=== PATIENT | female | born 1945 | race African-American/Black ===

== ENCOUNTER 2017-09-11 13:37 | Emergency (ER) | payer MEDICARE, OTHER ==
[~2017-09-11] VITALS: Ht 170.2 cm; Wt 75.0 kg
[~2017-09-11 13:37] MED LIST: ALBUTEROL; AMLODIPINE; ATROVENT; CLONIDINE PO; FLUT1DIS3 INH; METOPROLOL PO; NORVASC PO
[2017-09-11] MEDS ORDERED: ACETAMINOPHEN 325MG TABLET PO ONE (18:30)
[2017-09-11 20:34] VITALS: BP 127/83
[2017-09-22] MEDS ORDERED: ATROV IH (16:30)
== END 2017-09-11 20:41 | disposition home or self-care (01) ==
LOC: ER 13:37
DX: S81.832A Puncture wound without foreign body, left lower leg, initial encounter (principal); I10 Essential (primary) hypertension; J45.909 Unspecified asthma, uncomplicated; Z90.710 Acquired absence of both cervix and uterus; W22.8XXA Striking against or struck by other objects, initial encounter; Y93.89 Activity, other specified; Y99.8 Other external cause status; Y92.89 Other specified places as the place of occurrence of the external cause
CPT/HCPCS: 12001; 73590; 99284

== ENCOUNTER 2017-09-14 11:03 | Emergency (ER) | payer MEDICARE ==
[~2017-09-14] VITALS: Ht 170.2 cm; Wt 75.0 kg
[2017-09-14 11:14] VITALS: BP 132/78
[2017-09-22] MEDS ORDERED: ATROV IH (16:30)
== END 2017-09-14 12:41 | disposition home or self-care (01) ==
LOC: ER 11:03
DX: Z48.00 Encounter for change or removal of nonsurgical wound dressing (principal); I10 Essential (primary) hypertension; E11.9 Type 2 diabetes mellitus without complications; J45.909 Unspecified asthma, uncomplicated; Z91.013 Allergy to seafood; Z90.710 Acquired absence of both cervix and uterus
CPT/HCPCS: 99281

== ENCOUNTER 2017-09-18 09:29 | Emergency (ER) | payer MEDICARE ==
[~2017-09-18] VITALS: Ht 170.2 cm; Wt 74.0 kg
[2017-09-18] MEDS ORDERED: CEFTRIAXONE 1 G PREMIX 50 ML IV ONE (16:00)
[2017-09-18] MEDS ORDERED: VANCOMYCIN 1 G PREMIX 200 ML IV SCH (16:00)
[2017-09-18 17:30] VITALS: BP 157/69
[2017-09-22] MEDS ORDERED: ATROV IH (16:30)
== END 2017-09-18 19:00 | disposition home or self-care (01) ==
LOC: ER 12:42
DX: L03.116 Cellulitis of left lower limb (principal); Z91.013 Allergy to seafood
CPT/HCPCS: 87070; 87205; 96365; 96368; 99284; J0696; J3370

== ENCOUNTER 2017-10-05 18:46 | Inpatient (IN) | payer MEDICARE ==
[~2017-10-05] VITALS: Ht 170.2 cm; Wt 69.4 kg
[2017-10-05 00:15] VITALS: BP 123/88
[~2017-10-05 18:46] MED LIST changes: -AMLODIPINE; +ATROV IH; -ATROVENT
[2017-10-05] MEDS ORDERED: METHYLPREDNISOLONE SOD SUCC 125 MG/2 ML VIAL IV STA (20:03)
[2017-10-05] MEDS ORDERED: IPRATROPIUM/ALBUTEROL 0.5-3(2.5)MG/3ML NEB HHN ONE (20:15)
[2017-10-05 20:44] LABS: BASOPHILS % 1.2 % (0.0-2.0); EOSINOPHILS % 7.7 % (0.0-5.0); HEMATOCRIT. 39.9 % (36.0-48.0); HEMOGLOBIN. 13.4 g/dL (12.0-16.0); LYMPHOCYTES % 21.1 % (20.0-50.0); MEAN CORPUSCULAR HEMOGLOBIN 26.9 pg (28.0-32.0); MEAN CORPUSCULAR VOLUME 80.4 fL (81.0-99.0); MEAN PLATELET VOLUME 8.3 fl (7.4-10.4); MONOCYTES % 9.1 % (2.0-8.0); NEUTROPHILS % 60.9 % (40.0-76.0); PLATELET 217 x1000/uL (130-400); RED BLOOD CELL COUNT 4.97 mill/uL (4.2-5.4); RED CELL DISTRIBUTION WIDTH 15.5 % (11.6-14.6)
[2017-10-05 20:50] LABS: INR 1.1; PARTIAL THROMBOPLASTIN TIME 26.1 sec (23.4-31.0); PROTHROMBIN TIME 10.9 sec (9.4-11.6)
[2017-10-05 21:00] LABS: CARBON DIOXIDE 23 mEq/L (21-32); CHLORIDE 110 mEq/L (98-107)
[2017-10-05 21:01] LABS: TROPONIN I < 0.02 ng/mL (0.00-0.04)
[2017-10-05] MEDS ORDERED: VANCOMYCIN 1 G PREMIX 200 ML IV SCH (21:45)
[2017-10-05 22:14] LABS: BG BASE EXCESS -5.2 mmol/L (-2.0-2.0); BG DEOXYHEMOGLOBIN 3.7 % (0.0-5.0); BG FRACTION INSPIRED OXYGEN 21; BG HCO3 ACT 19.1 mmol/L (22.0-26.0); BG METHEMOGLOBIN 0.3 % (0.0-1.5); BG OXYGEN SATURATION 96.3 % (92.0-98.5); BG PCO2 33.3 mmHg (35.0-45.0); BG PH 7.376 (7.350-7.450); BG PO2 81.6 mmHg (75.0-100.0); BG SAMPLE SITE RIGHT RADIAL; BG TOTAL HEMOGLOBIN 13.4 g/dL (12.0-18.0); BG VENT MODE ROOM AIR
[2017-10-06 00:15] VITALS: BP 123/88
[2017-10-06 00:20] VITALS: BP 123/88
[2017-10-06] MEDS ORDERED: DIPHENHYDRAMINE 25MG CAPSULE PO PRN (01:30)
[2017-10-06] MEDS ORDERED: CLONIDINE 0.1MG TABLET PO PRN (02:00)
[2017-10-06 04:00] VITALS: BP 110/68
[2017-10-06] MEDS ORDERED: IPRATROPIUM/ALBUTEROL 0.5-3(2.5)MG/3ML NEB HHN SCH (04:00)
[2017-10-06] MEDS: METHYLPREDNISOLONE SOD SUCC 40 MG/ML VIAL IV SCH ×3 (06:08→14:15)
[2017-10-06 07:46] LABS: BASOPHILS % 0.4 % (0.0-2.0); HEMATOCRIT. 39.6 % (36.0-48.0); HEMOGLOBIN. 13.3 g/dL (12.0-16.0); LYMPHOCYTES % 19.1 % (20.0-50.0); MEAN CORPUSCULAR VOLUME 80.6 fL (81.0-99.0); MEAN PLATELET VOLUME 8.4 fl (7.4-10.4); MONOCYTES % 1.2 % (2.0-8.0); NEUTROPHILS % 79.3 % (40.0-76.0); PLATELET 203 x1000/uL (130-400); RED BLOOD CELL COUNT 4.92 mill/uL (4.2-5.4); RED CELL DISTRIBUTION WIDTH 15.3 % (11.6-14.6)
[2017-10-06 08:00] VITALS: BP 140/70
[2017-10-06 08:31] LABS: CHLORIDE 110 mEq/L (98-107)
[2017-10-06 08:50] LABS: CARBON DIOXIDE 18 mEq/L (21-32)
[2017-10-06] MEDS ORDERED: AMLODIPINE 10MG TABLET PO SCH (09:00)
[2017-10-06] MEDS ORDERED: ENOXAPARIN 40MG/0.4ML SYR SUBCUT SCH (09:00)
[2017-10-06] MEDS ORDERED: METOPROLOL TARTRATE 25MG TABLET PO SCH (09:00)
[2017-10-06] MEDS ORDERED: VANCOMYCIN 500 MG PREMIX 100 ML IV SCH (11:00)
[2017-10-06] MEDS ORDERED: LEVOFLOXACIN 500MG TABLET PO SCH (11:00)
[2017-10-06 12:00] VITALS: BP 116/74
[2017-10-06 14:10] LABS: T4 FREE 0.91 ng/dL (0.76-1.46)
[2017-10-06] MEDS ORDERED: LIDOCAINE HCL 1% 20ML VIAL (Pyxis) INJ ONE (14:20)
[2017-10-06] MEDS ORDERED: SODIUM BICARBONATE 4% (2.4MEQ) 5ML VIAL IV ONE (14:20)
[2017-10-06 15:10] VITALS: BP 116/74
[2017-10-07] MEDS ORDERED: LEVOFLOXACIN 250MG TABLET PO SCH (11:00)
== END 2017-10-06 16:18 | disposition home or self-care (01) | DRG 191 ==
LOC: EDBEDREQTM 22:18 → EDBEDREQ 22:18 → ER 22:31 → 5WST 22:32 → ENRESERV 23:00
PROVIDERS: ADMIT Internal Medicine; ATTEND Internal Medicine
DX: J44.1 Chronic obstructive pulmonary disease with (acute) exacerbation (principal); L03.116 Cellulitis of left lower limb; M19.90 Unspecified osteoarthritis, unspecified site; I10 Essential (primary) hypertension; Z79.899 Other long term (current) drug therapy; Z90.710 Acquired absence of both cervix and uterus; Z91.013 Allergy to seafood
CPT/HCPCS: 36415; 36600; 71010; 80048; 80053; 82375; 82805; 82962; 83605; 83880; 84439; 84443; 84481; 84484; 85025; 85610; 85730; 87040; 93005; 94640; 96365; 96375; 99285; J1650; J2920; J2930; J3370; J3490; J7620; Q0163

== ENCOUNTER 2018-06-29 09:28 | Observation (INO) | payer MEDICARE ==
[~2018-06-29] VITALS: Ht 170.2 cm; Wt 63.5 kg
[~2018-06-29 09:28] MED LIST changes: -ALBUTEROL
[2018-06-29] MEDS ORDERED: METHYLPREDNISOLONE SOD SUCC 125 MG/2 ML VIAL IV STA (09:53)
[2018-06-29] MEDS ORDERED: IPRATROPIUM BROMIDE (0.02%) 0.5MG/2.5ML NEB HHN STA (09:53)
[2018-06-29] MEDS ORDERED: ALBUTEROL (0.083%) 2.5MG/3ML NEB HHN STA (09:53)
[2018-06-29 10:12] LABS: BASOPHILS % 0.5 % (0.0-2.0); EOSINOPHILS % 11.5 % (0.0-5.0); HEMATOCRIT. 43.7 % (36.0-48.0); HEMOGLOBIN. 14.7 g/dL (12.0-16.0); LYMPHOCYTES % 22.4 % (20.0-50.0); MEAN CORPUSCULAR VOLUME 80.4 fL (81.0-99.0); NEUTROPHILS % 57.6 % (40.0-76.0); PLATELET 248 x1000/uL (130-400); RED BLOOD CELL COUNT 5.44 mill/uL (4.2-5.4); RED CELL DISTRIBUTION WIDTH 15.9 % (11.6-14.6)
[2018-06-29 10:14] LABS: CHLORIDE 109 mEq/L (98-107)
[2018-06-29 10:15] LABS: PROTHROMBIN TIME 10.8 sec (9.4-11.6)
[2018-06-29] MEDS ORDERED: DIPHENHYDRAMINE 50MG/ML VIAL IV ONE (10:45)
[2018-06-29] MEDS ORDERED: SODIUM CHLORIDE 0.9% 1,000 ML IV ONE (11:00)
[2018-06-29 16:20] VITALS: BP 149/72
[2018-06-29 16:30] VITALS: BP 149/72
[2018-06-29] MEDS ORDERED: ACETAMINOPHEN 325MG TABLET PO PRN (18:15)
[2018-06-29] MEDS ORDERED: IPRATROPIUM/ALBUTEROL 0.5-3(2.5)MG/3ML NEB INH PRN (18:15)
[2018-06-29] MEDS ORDERED: CLONIDINE 0.1MG TABLET PO PRN (18:15)
[2018-06-29] MEDS ORDERED: ONDANSETRON 4MG ODT PO PRN (18:15)
[2018-06-29] MEDS ORDERED: MAGNESIUM/ALUMINUM HYDROXIDE/SIMETHICONE 30ML UDC PO PRN (18:15)
[2018-06-29] MEDS ORDERED: ACETAMINOPHEN 650MG SUPP PR PRN (18:15)
[2018-06-29] MEDS ORDERED: NA PHOS,M-B/NA PHOS,DI-BA ENEMA 118ML PR PRN (18:15)
[2018-06-29] MEDS ORDERED: HYDROCODONE/ACETAMINOPHEN 5/325MG TABLET PO PRN (18:15)
[2018-06-29] MEDS ORDERED: AMLODIPINE 5MG TABLET PO NR (18:45)
[2018-06-29] MEDS: METHYLPREDNISOLONE SOD SUCC 40 MG/ML VIAL IV SCH (19:04)
[2018-06-29 20:00] VITALS: BP 131/60
[2018-06-29] MEDS: LEVOFLOXACIN 500MG PREMIX 100 ML IV SCH (20:53)
[2018-06-29] MEDS: SODIUM CHLORIDE 0.45% 1,000 ML IV SCH (20:54)
[2018-06-29] MEDS: IPRATROPIUM/ALBUTEROL 0.5-3(2.5)MG/3ML NEB HHN SCH (21:42)
[2018-06-29] MEDS: FAMOTIDINE 20MG/2ML VIAL IV SCH (21:44)
[2018-06-29] MEDS: ENOXAPARIN 40MG/0.4ML SYR SUBCUT SCH (21:45)
[2018-06-30] VITALS: BP 149/74
[2018-06-30] MEDS ORDERED: IPRATROPIUM/ALBUTEROL 0.5-3(2.5)MG/3ML NEB HHN SCH
[2018-06-30] MEDS: DIPHENHYDRAMINE 50MG/ML VIAL IV PRN ×2 (00:01→17:50)
[2018-06-30] MEDS: IPRATROPIUM/ALBUTEROL 0.5-3(2.5)MG/3ML NEB HHN SCH ×7 (00:53→19:58)
[2018-06-30] MEDS: METHYLPREDNISOLONE SOD SUCC 40 MG/ML VIAL IV SCH ×3 (02:13→17:50)
[2018-06-30 04:00] VITALS: BP 131/66
[2018-06-30 07:33] LABS: BASOPHILS % 0.3 % (0.0-2.0); HEMOGLOBIN. 12.8 g/dL (12.0-16.0); LYMPHOCYTES % 11.4 % (20.0-50.0); MEAN CORPUSCULAR HEMOGLOBIN 26.8 pg (28.0-32.0); MEAN CORPUSCULAR VOLUME 79.8 fL (81.0-99.0); MEAN PLATELET VOLUME 8.4 fl (7.4-10.4); MONOCYTES % 1.5 % (2.0-8.0); NEUTROPHILS % 86.8 % (40.0-76.0); PLATELET 207 x1000/uL (130-400); RED BLOOD CELL COUNT 4.76 mill/uL (4.2-5.4)
[2018-06-30 07:48] LABS: CHLORIDE 111 mEq/L (98-107)
[2018-06-30 07:57] LABS: T4 FREE 1.41 ng/dL (0.76-1.46)
[2018-06-30 08:00] LABS: LDL CHOLESTEROL 55 mg/dL (5-100)
[2018-06-30 08:02] LABS: HDL CHOLESTEROL 65 mg/dL (40-59)
[2018-06-30] MEDS: FAMOTIDINE 20MG/2ML VIAL IV SCH ×2 (08:59→21:18)
[2018-06-30] MEDS ORDERED: AMLODIPINE 5MG TABLET PO SCH (09:00)
[2018-06-30 09:13] VITALS: BP 141/61
[2018-06-30 09:27] LABS: BG BASE EXCESS -4.7 mmol/L (-2.0-2.0); BG CARBOXYHEMOGLOBIN 0.2 % (0.5-1.5); BG DEOXYHEMOGLOBIN 4.5 % (0.0-5.0); BG FRACTION INSPIRED OXYGEN 21; BG OXYGEN SATURATION 95.5 % (92.0-98.5); BG OXYHEMOGLOBIN 95.3 % (94.0-97.0); BG PCO2 31.3 mmHg (35.0-45.0); BG PO2 77.9 mmHg (75.0-100.0); BG SAMPLE SITE LEFT BRACHIAL; BG TOTAL HEMOGLOBIN 13.5 g/dL (12.0-18.0); BG VENT MODE ROOM AIR
[2018-06-30 12:52] VITALS: BP 128/63
[2018-06-30] MEDS ORDERED: ACETYLCYSTEINE 100MG/ML 10% VIAL 4ML INH SCH (14:00)
[2018-06-30 16:23] LABS: CLARITY URINE CLEAR (CLEAR); COLOR URINE YELLOW (YELLOW); KETONES URINE TRACE (NEGATIVE); LEUKOCYTE ESTERASE URINE 1+ (NEGATIVE); NITRITE URINE NEGATIVE (NEGATIVE); OCCULT BLOOD URINE TRACE (NEGATIVE); PROTEIN URINE NEGATIVE (NEGATIVE); SPECIFIC GRAVITY URINE 1.022 (1.005-1.030); UROBILINOGEN URINE 0.2 E.U./dL (0.2-1.0)
[2018-06-30 16:39] LABS: *AMPHETAMINES SCREEN URINE NEGATIVE (NEGATIVE); *BARBITURATES SCREEN URINE NEGATIVE (NEGATIVE); *BENZODIAZEPINES SCREEN URINE NEGATIVE (NEGATIVE); *COCAINE SCREEN URINE NEGATIVE (NEGATIVE); METHADONE URINE SCREEN NEGATIVE (NEGATIVE)
[2018-06-30 16:40] LABS: CANNABINOID URINE SCREEN PRESUMTIVE POSITIVE (NEGATIVE); OPIATES URINE SCREEN PRESUMTIVE POSITIVE (NEGATIVE); PHENCYCLIDINE URINE SCREEN NEGATIVE (NEGATIVE)
[2018-06-30] MEDS ORDERED: MONTELUKAST SODIUM 10MG TABLET PO SCH (17:00)
[2018-06-30] MEDS: SODIUM CHLORIDE 0.45% 1,000 ML IV SCH (17:51)
[2018-06-30] MEDS: LEVOFLOXACIN 500MG PREMIX 100 ML IV SCH (19:46)
[2018-06-30 20:00] VITALS: BP 147/69
[2018-06-30 20:17] VITALS: BP 147/69
[2018-06-30] MEDS: ENOXAPARIN 40MG/0.4ML SYR SUBCUT SCH (21:19)
== END 2018-06-30 21:55 | disposition home or self-care (01) ==
LOC: ER 09:28 → INTOOBSV 10:51 → 6WST 10:51 → EDBEDREQ 10:53 → ER 11:11 → ENRESERV 15:22 → 6WST 17:41
PROVIDERS: ADMIT Internal Medicine; ATTEND Internal Medicine
DX: J44.1 Chronic obstructive pulmonary disease with (acute) exacerbation (principal); E86.0 Dehydration; I10 Essential (primary) hypertension; M19.90 Unspecified osteoarthritis, unspecified site; R06.03 Acute respiratory distress; R63.4 Abnormal weight loss; R91.1 Solitary pulmonary nodule; Z90.710 Acquired absence of both cervix and uterus; Z79.899 Other long term (current) drug therapy
CPT/HCPCS: 36415; 36600; 71045; 71250; 80053; 80061; 80305; 81003; 82375; 82805; 83690; 83735; 83880; 84439; 84443; 84484; 85025; 85610; 87040; 93005; 93306; 93970; 96361; 96365; 96366; 96372; 96375; 96376; 97162; 99285; C1893; G0378; J1200; J1650; J1956; J2920; J2930; J3490; J7030; J7608; J7611; J7620; 96374

== ENCOUNTER 2018-07-12 11:52 | Emergency (ER) | payer MEDICARE ==
[~2018-07-12] VITALS: Ht 172.7 cm; Wt 65.0 kg
[2018-07-12] MEDS ORDERED: DIPHENHYDRAMINE 50MG/ML VIAL IV ONE (13:30)
[2018-07-12] MEDS ORDERED: FAMOTIDINE 20MG/2ML VIAL IV ONE (13:30)
[2018-07-12] MEDS ORDERED: METHYLPREDNISOLONE SOD SUCC 125 MG/2 ML VIAL IV ONE (13:30)
[2018-07-12 14:27] VITALS: BP 158/86
== END 2018-07-12 14:38 | disposition home or self-care (01) ==
LOC: ER 11:52
DX: B02.9 Zoster without complications (principal); L23.9 Allergic contact dermatitis, unspecified cause; I11.9 Hypertensive heart disease without heart failure; J45.909 Unspecified asthma, uncomplicated; Z90.710 Acquired absence of both cervix and uterus; Z91.013 Allergy to seafood
CPT/HCPCS: 93005; 99283

== ENCOUNTER 2018-07-26 13:24 | Emergency (ER) | payer MEDICARE ==
[~2018-07-26] VITALS: Ht 170.2 cm; Wt 57.8 kg
[2018-07-26] MEDS ORDERED: TRAMADOL 50MG TABLET PO ONE (14:15)
[2018-07-26 14:24] LABS: BASOPHILS % 0.7 % (0.0-2.0); EOSINOPHILS % 2.4 % (0.0-5.0); HEMATOCRIT. 42.5 % (36.0-48.0); HEMOGLOBIN. 14.6 g/dL (12.0-16.0); LYMPHOCYTES % 20.5 % (20.0-50.0); MEAN CORPUSCULAR HEMOGLOBIN 27.3 pg (28.0-32.0); MEAN CORPUSCULAR VOLUME 79.6 fL (81.0-99.0); MEAN PLATELET VOLUME 7.4 fl (7.4-10.4); MONOCYTES % 8.5 % (2.0-8.0); NEUTROPHILS % 67.9 % (40.0-76.0); PLATELET 376 x1000/uL (130-400); RED BLOOD CELL COUNT 5.35 mill/uL (4.2-5.4); RED CELL DISTRIBUTION WIDTH 15.3 % (11.6-14.6)
[2018-07-26 14:31] LABS: CHLORIDE 103 mEq/L (98-107)
[2018-07-26 14:32] LABS: INR 1.1; PROTHROMBIN TIME 10.6 sec (9.1-11.1)
[2018-07-26] MEDS ORDERED: SODIUM CHLORIDE 0.9% 1,000 ML IV ONE (14:42)
[2018-07-26 15:46] VITALS: BP 144/90
== END 2018-07-26 17:00 | disposition home or self-care (01) ==
LOC: ER 13:24
DX: B02.9 Zoster without complications (principal); E83.52 Hypercalcemia; I11.9 Hypertensive heart disease without heart failure; J45.909 Unspecified asthma, uncomplicated; R00.0 Tachycardia, unspecified; J44.9 Chronic obstructive pulmonary disease, unspecified; Z90.49 Acquired absence of other specified parts of digestive tract; Z91.013 Allergy to seafood
CPT/HCPCS: 36415; 71045; 80053; 83690; 83880; 84484; 85025; 85610; 93005; 96360; 99285; J7030

== ENCOUNTER 2018-09-09 23:18 | Inpatient (IN) | payer MEDICARE ==
[~2018-09-09] VITALS: Ht 170.2 cm; Wt 52.2 kg
[2018-09-10] MEDS ORDERED: ONDANSETRON HCL 4MG/2ML INJ IV STA (00:04)
[2018-09-10 00:52] LABS: BASOPHILS % 0.8 % (0.0-2.0); EOSINOPHILS % 6.1 % (0.0-5.0); HEMATOCRIT. 39.6 % (36.0-48.0); HEMOGLOBIN. 13.4 g/dL (12.0-16.0); LYMPHOCYTES % 25.6 % (20.0-50.0); MEAN CORPUSCULAR HEMOGLOBIN 27.2 pg (28.0-32.0); MEAN CORPUSCULAR VOLUME 80.3 fL (81.0-99.0); MEAN PLATELET VOLUME 8.4 fl (7.4-10.4); MONOCYTES % 9.2 % (2.0-8.0); NEUTROPHILS % 58.3 % (40.0-76.0); PLATELET 191 x1000/uL (130-400); RED BLOOD CELL COUNT 4.94 mill/uL (4.2-5.4); RED CELL DISTRIBUTION WIDTH 15.2 % (11.6-14.6)
[2018-09-10 01:01] LABS: CHLORIDE 106 mEq/L (98-107)
[2018-09-10 01:06] LABS: INR 1.1; PROTHROMBIN TIME 10.7 sec (9.1-11.1)
[2018-09-10 02:04] LABS: CLARITY URINE CLOUDY (CLEAR); COLOR URINE YELLOW (YELLOW); KETONES URINE 1+ (NEGATIVE); LEUKOCYTE ESTERASE URINE 2+ (NEGATIVE); NITRITE URINE NEGATIVE (NEGATIVE); OCCULT BLOOD URINE NEGATIVE (NEGATIVE); PROTEIN URINE NEGATIVE (NEGATIVE); SPECIFIC GRAVITY URINE 1.012 (1.005-1.030); UROBILINOGEN URINE 0.2 E.U./dL (0.2-1.0)
[2018-09-10] MEDS ORDERED: CEFTRIAXONE 1 G PREMIX 50 ML IV ONE (02:45)
[2018-09-10 09:00] VITALS: BP 134/74
[2018-09-10] MEDS ORDERED: HYDROCODONE/ACETAMINOPHEN 5/325MG TABLET PO PRN (10:00)
[2018-09-10] MEDS ORDERED: CLONIDINE 0.1MG TABLET PO PRN (10:00)
[2018-09-10] MEDS ORDERED: SODIUM CHLORIDE 0.45% 1,000 ML IV SCH (10:00)
[2018-09-10] MEDS ORDERED: ACETAMINOPHEN 325MG TABLET PO PRN (10:00)
[2018-09-10 12:00] VITALS: BP 181/79
[2018-09-10] MEDS ORDERED: ENOXAPARIN 30MG/0.3ML SYR SUBCUT SCH (12:00)
[2018-09-10] MEDS ORDERED: BUDESONIDE 0.5MG/2ML NEB HHN SCH (13:45)
[2018-09-10] MEDS ORDERED: METHYLPREDNISOLONE SOD SUCC 40 MG/ML VIAL IV SCH (13:45)
[2018-09-10 14:22] LABS: BG BASE EXCESS -1.9 mmol/L (-2.0-2.0); BG CARBOXYHEMOGLOBIN 0.7 % (0.5-1.5); BG DEOXYHEMOGLOBIN 5.2 % (0.0-5.0); BG FRACTION INSPIRED OXYGEN 21; BG HCO3 ACT 22.4 mmol/L (22.0-26.0); BG METHEMOGLOBIN 0.3 % (0.0-1.5); BG OXYGEN SATURATION 94.7 % (92.0-98.5); BG OXYHEMOGLOBIN 93.8 % (94.0-97.0); BG PCO2 36.7 mmHg (35.0-45.0); BG PH 7.404 (7.350-7.450); BG PO2 75.2 mmHg (75.0-100.0); BG SAMPLE SITE RIGHT BRACHIAL; BG TOTAL HEMOGLOBIN 13.1 g/dL (12.0-18.0); BG VENT MODE ROOM AIR
[2018-09-10 16:00] VITALS: BP 122/59
[2018-09-10] MEDS ORDERED: IPRATROPIUM/ALBUTEROL 0.5-3(2.5)MG/3ML NEB HHN SCH (18:00)
[2018-09-10 20:00] VITALS: BP 125/75
[2018-09-10 20:30] VITALS: BP 125/75
[2018-09-11] MEDS ORDERED: CEFTRIAXONE 1 G PREMIX 50 ML IV SCH (03:00)
== END 2018-09-10 21:42 | disposition home or self-care (01) | DRG 690 ==
LOC: ER 23:45 → 6EST 09-10 02:40 → EDBEDREQSVC 09-10 02:42 → EDBEDREQTM 09-10 02:42 → EDBEDREQ 09-10 02:42 → ENRESERV 09-10 07:55
PROVIDERS: ADMIT Internal Medicine; ATTEND Internal Medicine
DX: N39.0 Urinary tract infection, site not specified (principal); Z68.1 Body mass index [BMI] 19.9 or less, adult; I10 Essential (primary) hypertension; M19.90 Unspecified osteoarthritis, unspecified site; R63.4 Abnormal weight loss; J45.909 Unspecified asthma, uncomplicated; K59.00 Constipation, unspecified; R62.7 Adult failure to thrive; Z90.710 Acquired absence of both cervix and uterus; Z91.013 Allergy to seafood; Z79.899 Other long term (current) drug therapy
CPT/HCPCS: 36415; 36600; 71045; 74018; 74176; 82375; 82378; 82805; 83605; 96365; 96375; 97162; 99285; J0696; J1650; J2405; J2920; J7620; J7626

== ENCOUNTER 2018-10-29 20:48 | Emergency (ER) | payer MEDICARE ==
[~2018-10-29] VITALS: Ht 170.2 cm; Wt 54.0 kg
[2018-10-29 22:11] LABS: BASOPHILS % 0.9 % (0.0-2.0); CHLORIDE 106 mEq/L (98-107); EOSINOPHILS % 8.7 % (0.0-5.0); HEMATOCRIT. 37.3 % (36.0-48.0); HEMOGLOBIN. 12.7 g/dL (12.0-16.0); LYMPHOCYTES % 25.2 % (20.0-50.0); MEAN CORPUSCULAR HEMOGLOBIN 28.2 pg (28.0-32.0); MEAN CORPUSCULAR VOLUME 82.6 fL (81.0-99.0); MEAN PLATELET VOLUME 8.7 fl (7.4-10.4); MONOCYTES % 11.5 % (2.0-8.0); NEUTROPHILS % 53.7 % (40.0-76.0); PLATELET 224 x1000/uL (130-400); RED BLOOD CELL COUNT 4.52 mill/uL (4.2-5.4); RED CELL DISTRIBUTION WIDTH 15.5 % (11.6-14.6)
[2018-10-29 22:13] LABS: PROTHROMBIN TIME 10.2 sec (9.1-11.1)
[2018-10-29] MEDS ORDERED: IPRATROPIUM BROMIDE (0.02%) 0.5MG/2.5ML NEB HHN NR (23:05)
[2018-10-29] MEDS ORDERED: PREDNISONE 20MG TABLET PO NR (23:05)
[2018-10-29] MEDS ORDERED: ALBUTEROL (0.083%) 2.5MG/3ML NEB HHN NR (23:05)
[2018-10-29 23:25] LABS: CLARITY URINE CLEAR (CLEAR); COLOR URINE YELLOW (YELLOW); KETONES URINE TRACE (NEGATIVE); LEUKOCYTE ESTERASE URINE 2+ (NEGATIVE); NITRITE URINE NEGATIVE (NEGATIVE); OCCULT BLOOD URINE NEGATIVE (NEGATIVE); PROTEIN URINE NEGATIVE (NEGATIVE); SPECIFIC GRAVITY URINE 1.015 (1.005-1.030); UROBILINOGEN URINE 0.2 E.U./dL (0.2-1.0)
[2018-10-30 01:00] VITALS: BP 144/78
== END 2018-10-30 01:31 | disposition home or self-care (01) ==
LOC: ER 20:48
DX: J44.1 Chronic obstructive pulmonary disease with (acute) exacerbation (principal); N39.0 Urinary tract infection, site not specified; B02.9 Zoster without complications; R00.0 Tachycardia, unspecified; E83.52 Hypercalcemia; I10 Essential (primary) hypertension; Z91.013 Allergy to seafood; Z90.710 Acquired absence of both cervix and uterus
CPT/HCPCS: 36415; 71045; 80053; 81003; 83690; 84484; 85025; 85610; 93005; 94644; 99285; J7512; J7611

== ENCOUNTER 2018-12-28 20:05 | Inpatient (IN) | payer MEDICARE ==
[~2018-12-28] VITALS: Ht 170.2 cm; Wt 46.3 kg
[2018-12-29] MEDS ORDERED: PREDNISONE 20MG TABLET PO ONE (00:15)
[2018-12-29] MEDS ORDERED: ALBUTEROL (0.5%) 2.5MG/0.5ML NEB HHN ONE (00:15)
[2018-12-29 00:49] LABS: BASOPHILS % 0.8 % (0.0-2.0); EOSINOPHILS % 7.8 % (0.0-5.0); HEMATOCRIT. 40.1 % (36.0-48.0); HEMOGLOBIN. 13.2 g/dL (12.0-16.0); LYMPHOCYTES % 21.7 % (20.0-50.0); MEAN CORPUSCULAR VOLUME 82.1 fL (81.0-99.0); MEAN PLATELET VOLUME 7.9 fl (7.4-10.4); MONOCYTES % 13.2 % (2.0-8.0); NEUTROPHILS % 56.5 % (40.0-76.0); PLATELET 215 x1000/uL (130-400); RED BLOOD CELL COUNT 4.89 mill/uL (4.2-5.4); RED CELL DISTRIBUTION WIDTH 14.3 % (11.6-14.6)
[2018-12-29 00:52] LABS: CLARITY URINE CLOUDY (CLEAR); COLOR URINE YELLOW (YELLOW); KETONES URINE TRACE (NEGATIVE); LEUKOCYTE ESTERASE URINE 2+ (NEGATIVE); NITRITE URINE NEGATIVE (NEGATIVE); OCCULT BLOOD URINE NEGATIVE (NEGATIVE); PROTEIN URINE NEGATIVE (NEGATIVE)
[2018-12-29 00:53] LABS: CHLORIDE 109 mEq/L (98-107)
[2018-12-29 12:00] VITALS: BP 126/79
[2018-12-29] MEDS ORDERED: DOCUSATE SODIUM 100MG CAPSULE PO PRN (15:00)
[2018-12-29] MEDS ORDERED: IPRATROPIUM/ALBUTEROL 0.5-3(2.5)MG/3ML NEB INH PRN (15:00)
[2018-12-29] MEDS ORDERED: MAGNESIUM/ALUMINUM HYDROXIDE/SIMETHICONE 30ML UDC PO PRN (15:00)
[2018-12-29] MEDS ORDERED: HYDROCODONE/ACETAMINOPHEN 5/325MG TABLET PO PRN (15:00)
[2018-12-29] MEDS ORDERED: ACETAMINOPHEN 325MG TABLET PO PRN (15:00)
[2018-12-29] MEDS ORDERED: GUAIFENESIN 200MG/10ML SUGAR FREE UDC PO PRN (15:00)
[2018-12-29] MEDS ORDERED: NA PHOS,M-B/NA PHOS,DI-BA ENEMA 118ML PR PRN (15:00)
[2018-12-29] MEDS ORDERED: CLONIDINE 0.1MG TABLET PO PRN (15:00)
[2018-12-29] MEDS ORDERED: ACETAMINOPHEN 650MG SUPP PR PRN (15:00)
[2018-12-29] MEDS ORDERED: LORAZEPAM 0.5MG TABLET PO PRN (15:00)
[2018-12-29] MEDS ORDERED: DIPHENHYDRAMINE 50MG/ML VIAL IV PRN (15:00)
[2018-12-29] MEDS ORDERED: ONDANSETRON HCL 4MG/2ML INJ IV PRN (15:00)
[2018-12-29 16:00] VITALS: BP 136/79
[2018-12-29] MEDS: METHYLPREDNISOLONE SOD SUCC 125 MG/2 ML VIAL IV SCH ×2 (16:39→22:52)
[2018-12-29] MEDS: ENOXAPARIN 40MG/0.4ML SYR SUBCUT SCH (16:41)
[2018-12-29] MEDS: AMLODIPINE 5MG TABLET PO SCH (16:41)
[2018-12-29] MEDS: SODIUM CHLORIDE 0.45% 1,000 ML IV SCH (16:42)
[2018-12-29] MEDS: LEVOFLOXACIN 500MG PREMIX 100 ML IV SCH (16:42)
[2018-12-29 17:15] LABS: BG BASE EXCESS 1.5 mmol/L (-2.0-2.0); BG CARBOXYHEMOGLOBIN 0.7 % (0.5-1.5); BG DEOXYHEMOGLOBIN 4.8 % (0.0-5.0); BG FRACTION INSPIRED OXYGEN 21; BG HCO3 ACT 25.1 mmol/L (22.0-26.0); BG METHEMOGLOBIN 0.1 % (0.0-1.5); BG OXYGEN SATURATION 95.2 % (92.0-98.5); BG OXYHEMOGLOBIN 94.4 % (94.0-97.0); BG PCO2 36.2 mmHg (35.0-45.0); BG PH 7.458 (7.350-7.450); BG PO2 72.7 mmHg (75.0-100.0); BG SAMPLE SITE RIGHT BRACHIAL; BG VENT MODE ROOM AIR
[2018-12-29] MEDS: IPRATROPIUM/ALBUTEROL 0.5-3(2.5)MG/3ML NEB INH SCH ×2 (17:15→20:08)
[2018-12-29 18:28] LABS: CHLORIDE 107 mEq/L (98-107)
[2018-12-29 20:00] VITALS: BP 151/90
[2018-12-29] MEDS ORDERED: ALBU90AE INH (20:58)
[2018-12-29 22:15] VITALS: BP 142/69
[2018-12-29] MEDS ORDERED: PNEUMOCOCCAL 23-VAL P-SAC VAC 0.5 ML IM ONE (23:00)
[2018-12-29 23:10] LABS: *AMPHETAMINES SCREEN URINE NEGATIVE (NEGATIVE); *BARBITURATES SCREEN URINE NEGATIVE (NEGATIVE); *BENZODIAZEPINES SCREEN URINE NEGATIVE (NEGATIVE); *COCAINE SCREEN URINE NEGATIVE (NEGATIVE); METHADONE URINE SCREEN NEGATIVE (NEGATIVE); OPIATES URINE SCREEN NEGATIVE (NEGATIVE)
[2018-12-29 23:11] LABS: CANNABINOID URINE SCREEN PRESUMTIVE POSITIVE (NEGATIVE); PHENCYCLIDINE URINE SCREEN NEGATIVE (NEGATIVE)
[2018-12-30 00:18] VITALS: BP 145/75
[2018-12-30] MEDS: IPRATROPIUM/ALBUTEROL 0.5-3(2.5)MG/3ML NEB INH SCH ×5 (00:38→14:41)
[2018-12-30 04:00] VITALS: BP 147/71
[2018-12-30] MEDS: METHYLPREDNISOLONE SOD SUCC 125 MG/2 ML VIAL IV SCH ×2 (05:35→14:50)
[2018-12-30 07:02] LABS: BASOPHILS % 0.2 % (0.0-2.0); HEMATOCRIT. 38.4 % (36.0-48.0); HEMOGLOBIN. 12.9 g/dL (12.0-16.0); LYMPHOCYTES % 13.1 % (20.0-50.0); MEAN CORPUSCULAR HEMOGLOBIN 27.4 pg (28.0-32.0); MEAN CORPUSCULAR VOLUME 81.8 fL (81.0-99.0); MEAN PLATELET VOLUME 8.4 fl (7.4-10.4); MONOCYTES % 2.9 % (2.0-8.0); NEUTROPHILS % 83.8 % (40.0-76.0); PLATELET 224 x1000/uL (130-400); RED CELL DISTRIBUTION WIDTH 14.4 % (11.6-14.6)
[2018-12-30 07:56] LABS: CHLORIDE 106 mEq/L (98-107)
[2018-12-30 08:08] LABS: LDL CHOLESTEROL 63 mg/dL (5-100)
[2018-12-30 08:10] LABS: HDL CHOLESTEROL 64 mg/dL (40-59)
[2018-12-30] MEDS: AMLODIPINE 5MG TABLET PO SCH (09:13)
[2018-12-30] MEDS: SODIUM CHLORIDE 0.45% 1,000 ML IV SCH (11:00)
[2018-12-30] MEDS ORDERED: SIMETHICONE 80MG TABLET CHEW PO PRN (14:00)
[2018-12-30] MEDS: LEVOFLOXACIN 500MG PREMIX 100 ML IV SCH (15:00)
[2018-12-30] MEDS: ENOXAPARIN 40MG/0.4ML SYR SUBCUT SCH (18:08)
[2018-12-30 18:36] VITALS: BP 137/69
[2018-12-30 20:00] VITALS: BP 145/71
== END 2018-12-30 19:56 | disposition home or self-care (01) | DRG 193 ==
LOC: ER 20:05 → 6EST 12-29 02:35 → ENRESERV 12-29 09:51 → 7WST 12-29 22:00
PROVIDERS: ADMIT Internal Medicine; ATTEND Internal Medicine
DX: J18.9 Pneumonia, unspecified organism (principal); J96.00 Acute respiratory failure, unspecified whether with hypoxia or hypercapnia; J44.0 Chronic obstructive pulmonary disease with (acute) lower respiratory infection; N39.0 Urinary tract infection, site not specified; Z68.1 Body mass index [BMI] 19.9 or less, adult; J44.1 Chronic obstructive pulmonary disease with (acute) exacerbation; R62.7 Adult failure to thrive; E04.1 Nontoxic single thyroid nodule; R73.9 Hyperglycemia, unspecified; E86.0 Dehydration; E83.52 Hypercalcemia; I10 Essential (primary) hypertension; Z90.710 Acquired absence of both cervix and uterus; Z91.013 Allergy to seafood; Z79.899 Other long term (current) drug therapy
CPT/HCPCS: 36415; 36600; 71045; 71250; 80048; 80061; 80305; 82375; 82805; 83036; 83880; 84439; 84443; 84484; 93005; 93880; 93970; 97161; 99285; J1650; J1956; J2930; J7512; J7611; J7620

== ENCOUNTER 2020-04-21 21:25 | Emergency (ER) | payer MEDICARE ==
[~2020-04-21] VITALS: Ht 170.2 cm; Wt 57.0 kg
[2020-04-21] MEDS: ALBUTEROL (0.083%) 2.5MG/3ML NEB HHN SCH ×2 (00:25→23:25)
[~2020-04-21 21:25] MED LIST changes: +ALBU90AE INH; -CLONIDINE PO; -FLUT1DIS3 INH
[2020-04-21] MEDS ORDERED: PREDNISONE 20MG TABLET PO STA (22:22)
[2020-04-21] MEDS ORDERED: IPRATROPIUM BROMIDE (0.02%) 0.5MG/2.5ML NEB HHN STA (22:22)
[2020-04-21 23:04] LABS: BASOPHILS % 0.8 % (0.0-2.0); EOSINOPHILS % 7.2 % (0.0-5.0); HEMATOCRIT. 38.9 % (36.0-48.0); HEMOGLOBIN. 13.1 g/dL (12.0-16.0); LYMPHOCYTES % 22.1 % (20.0-50.0); MEAN CORPUSCULAR HEMOGLOBIN 26.9 pg (28.0-32.0); MEAN CORPUSCULAR VOLUME 79.6 fL (81.0-99.0); MEAN PLATELET VOLUME 7.7 fl (7.4-10.4); NEUTROPHILS % 60.9 % (40.0-76.0); PLATELET 208 x1000/uL (130-400); RED BLOOD CELL COUNT 4.89 mill/uL (4.2-5.4); RED CELL DISTRIBUTION WIDTH 14.7 % (11.6-14.6)
[2020-04-21 23:09] LABS: CHLORIDE 112 mEq/L (98-107)
[2020-04-21 23:13] LABS: INR 0.9; PARTIAL THROMBOPLASTIN TIME 26.9 sec (23.4-31.0); PROTHROMBIN TIME 10.2 sec (9.6-11.0)
[2020-04-21 23:25] LABS: CLARITY URINE CLEAR (CLEAR); COLOR URINE YELLOW (YELLOW); KETONES URINE NEGATIVE (NEGATIVE); LEUKOCYTE ESTERASE URINE 1+ (NEGATIVE); NITRITE URINE NEGATIVE (NEGATIVE); OCCULT BLOOD URINE 1+ (NEGATIVE); PROTEIN URINE NEGATIVE (NEGATIVE); SPECIFIC GRAVITY URINE 1.023 (1.005-1.030); UROBILINOGEN URINE 0.2 E.U./dL (0.2-1.0)
[2020-04-22] MEDS: ALBUTEROL (0.083%) 2.5MG/3ML NEB HHN SCH (00:29)
[2020-04-22] MEDS ORDERED: CEPHALEXIN 250MG CAPSULE PO SCH (02:00)
[2020-04-22 02:56] VITALS: BP 163/83
== END 2020-04-22 02:57 | disposition home or self-care (01) ==
LOC: ER 21:25
DX: J45.909 Unspecified asthma, uncomplicated (principal); I10 Essential (primary) hypertension; Z90.710 Acquired absence of both cervix and uterus; Z79.899 Other long term (current) drug therapy; Z91.013 Allergy to seafood
CPT/HCPCS: 36415; 71045; 80053; 81003; 83880; 84484; 85025; 85610; 85730; 93005; 94640; 99285; J7512

== ENCOUNTER 2021-09-11 13:46 | Inpatient (IN) | payer MEDICARE, OTHER ==
[~2021-09-11] VITALS: Ht 172.7 cm; Wt 72.6 kg
[2021-09-11] MEDS ORDERED: IPRATROPIUM BROMIDE (0.02%) 0.5MG/2.5ML NEB HHN STA ×3 (17:12→18:30)
[2021-09-11] MEDS ORDERED: ALBUTEROL (0.083%) 2.5MG/3ML NEB HHN STA ×3 (17:12→18:30)
[2021-09-11] MEDS ORDERED: PREDNISONE 20MG TABLET PO STA (17:12)
[2021-09-11 17:37] LABS: BASOPHILS % 0.5 % (0.0-2.0); EOSINOPHILS % 0.7 % (0.0-5.0); HEMATOCRIT. 41.6 % (36.0-48.0); HEMOGLOBIN. 13.7 g/dL (12.0-16.0); LYMPHOCYTES % 11.1 % (20.0-50.0); MEAN CORPUSCULAR HEMOGLOBIN 26.6 pg (28.0-32.0); MEAN CORPUSCULAR VOLUME 80.3 fL (81.0-99.0); MEAN PLATELET VOLUME 7.6 fl (7.4-10.4); MONOCYTES % 2.4 % (2.0-8.0); NEUTROPHILS % 85.3 % (40.0-76.0); PLATELET 221 x1000/uL (130-400); RED BLOOD CELL COUNT 5.18 mill/uL (4.2-5.4)
[2021-09-11 17:42] LABS: CHLORIDE 114 mEq/L (98-107)
[2021-09-11] MEDS ORDERED: SODIUM CHLORIDE 0.9% 1,000 ML IV ONE (19:45)
[2021-09-11] MEDS ORDERED: CEFTRIAXONE 1 G PREMIX 50 ML IV ONE (19:45)
[2021-09-11] MEDS ORDERED: AZITHROMYCIN 500MG/250ML 250 ML IV ONE (19:45)
[2021-09-11 20:24] LABS: CLARITY URINE CLEAR (CLEAR); COLOR URINE YELLOW (YELLOW); KETONES URINE 2+ (NEGATIVE); LEUKOCYTE ESTERASE URINE TRACE (NEGATIVE); NITRITE URINE NEGATIVE (NEGATIVE); OCCULT BLOOD URINE TRACE (NEGATIVE); PROTEIN URINE TRACE (NEGATIVE); SPECIFIC GRAVITY URINE 1.022 (1.005-1.030); UROBILINOGEN URINE 0.2 E.U./dL (0.2-1.0)
[2021-09-12 03:40] VITALS: BP 128/83
[2021-09-12] MEDS ORDERED: IPRATROPIUM/ALBUTEROL 0.5-3(2.5)MG/3ML NEB HHN PRN (05:00)
[2021-09-12] MEDS ORDERED: GUAIFENESIN 200MG/10ML SUGAR FREE UDC PO PRN (05:00)
[2021-09-12] MEDS: METHYLPREDNISOLONE SOD SUCC 40 MG/ML VIAL IV SCH ×3 (05:51→20:33)
[2021-09-12 08:07] VITALS: BP 145/74
[2021-09-12 09:21] LABS: BASOPHILS % 0.2 % (0.0-2.0); HEMATOCRIT. 40.7 % (36.0-48.0); HEMOGLOBIN. 13.3 g/dL (12.0-16.0); LYMPHOCYTES % 13.4 % (20.0-50.0); MEAN CORPUSCULAR HEMOGLOBIN 26.4 pg (28.0-32.0); MEAN CORPUSCULAR VOLUME 80.7 fL (81.0-99.0); MEAN PLATELET VOLUME 8.3 fl (7.4-10.4); MONOCYTES % 2.2 % (2.0-8.0); NEUTROPHILS % 84.2 % (40.0-76.0); PLATELET 222 x1000/uL (130-400); RED BLOOD CELL COUNT 5.04 mill/uL (4.2-5.4)
[2021-09-12 09:28] LABS: CHLORIDE 114 mEq/L (98-107)
[2021-09-12] MEDS: ENOXAPARIN 40MG/0.4ML SYR SUBCUT SCH (09:35)
[2021-09-12 11:36] VITALS: BP 151/71
[2021-09-12] MEDS ORDERED: HYDROCODONE/ACETAMINOPHEN 5/325MG TABLET PO PRN (12:15)
[2021-09-12] MEDS ORDERED: HYDRALAZINE 20MG/ML VIAL IV PRN (12:15)
[2021-09-12] MEDS ORDERED: LORAZEPAM 2MG/ML CPJ IV PRN (12:15)
[2021-09-12] MEDS ORDERED: ACETAMINOPHEN 650MG SUPP PR PRN (12:15)
[2021-09-12] MEDS ORDERED: ONDANSETRON HCL 4MG/2ML INJ IV PRN (12:15)
[2021-09-12] MEDS ORDERED: ACETAMINOPHEN 325MG TABLET PO PRN (12:15)
[2021-09-12] MEDS ORDERED: NALOXONE HCL 0.4MG/ML VIAL IV PRN (12:30)
[2021-09-12 12:42] LABS: BG BASE EXCESS -2.3 mmol/L (-2.0-2.0); BG CARBOXYHEMOGLOBIN 0.5 % (0.5-1.5); BG DEOXYHEMOGLOBIN 4.4 % (0.0-5.0); BG HCO3 ACT 21.1 mmol/L (22.0-26.0); BG METHEMOGLOBIN 0.2 % (0.0-1.5); BG OXYGEN SATURATION 95.6 % (92.0-98.5); BG OXYHEMOGLOBIN 94.9 % (94.0-97.0); BG PCO2 32.1 mmHg (35.0-45.0); BG PH 7.435 (7.350-7.450); BG PO2 75.5 mmHg (75.0-100.0); BG SAMPLE SITE RIGHT BRACHIAL; BG VENT MODE ROOM AIR
[2021-09-12 13:16] LABS: LDL CHOLESTEROL 57 mg/dL (5-100)
[2021-09-12 13:18] LABS: HDL CHOLESTEROL 70 mg/dL (40-59); T4 FREE 1.82 ng/dL (0.76-1.46)
[2021-09-12] MEDS ORDERED: SODIUM POLYSTYRENE SULFONATE 15 G/60 ML BOT PO SCH (14:00)
[2021-09-12] MEDS: METOPROLOL TARTRATE 25MG TABLET PO SCH (14:07)
[2021-09-12] MEDS: AMLODIPINE 5MG TABLET PO SCH (14:07)
[2021-09-12 16:10] VITALS: BP 178/97
[2021-09-12] MEDS: AZITHROMYCIN 500 MG in DEXT 5% WATER 250 ML IV SCH (19:11)
[2021-09-12] MEDS: CEFTRIAXONE 1,000 MG in DEXTROSE 5% WATER 50 ML IV SCH (19:11)
[2021-09-12] MEDS: HYDROCORTISONE 1% OINT 28.35GM TOP SCH (20:33)
[2021-09-12] MEDS: FAMOTIDINE 20MG TABLET PO SCH (20:33)
[2021-09-12 20:42] VITALS: BP 160/80
[2021-09-12] MEDS: IPRATROPIUM/ALBUTEROL 0.5-3(2.5)MG/3ML NEB HHN SCH (21:05)
[2021-09-13] VITALS (7 sets, daily range): BP systolic 129–158; BP diastolic 70–81
[2021-09-13] MEDS: IPRATROPIUM/ALBUTEROL 0.5-3(2.5)MG/3ML NEB HHN SCH ×7 (00:51→23:57)
[2021-09-13] MEDS: METHYLPREDNISOLONE SOD SUCC 40 MG/ML VIAL IV SCH ×3 (05:28→21:27)
[2021-09-13 06:20] LABS: BASOPHILS % 0.1 % (0.0-2.0); HEMATOCRIT. 36.7 % (36.0-48.0); HEMOGLOBIN. 12.1 g/dL (12.0-16.0); LYMPHOCYTES % 9.4 % (20.0-50.0); MEAN CORPUSCULAR HEMOGLOBIN 26.3 pg (28.0-32.0); MEAN CORPUSCULAR VOLUME 79.7 fL (81.0-99.0); MEAN PLATELET VOLUME 8.4 fl (7.4-10.4); MONOCYTES % 3.9 % (2.0-8.0); NEUTROPHILS % 86.6 % (40.0-76.0); PLATELET 213 x1000/uL (130-400); RED CELL DISTRIBUTION WIDTH 16.8 % (11.6-14.6)
[2021-09-13 06:31] LABS: CHLORIDE 112 mEq/L (98-107)
[2021-09-13 07:39] LABS: PROTHROMBIN TIME 11.2 sec (9.6-11.0)
[2021-09-13] MEDS: ENOXAPARIN 40MG/0.4ML SYR SUBCUT SCH (08:39)
[2021-09-13] MEDS: AMLODIPINE 5MG TABLET PO SCH (08:39)
[2021-09-13] MEDS: METOPROLOL TARTRATE 25MG TABLET PO SCH (08:39)
[2021-09-13] MEDS: HYDROCORTISONE 1% OINT 28.35GM TOP SCH ×2 (08:40→21:29)
[2021-09-13] MEDS ORDERED: DEXT 5%/0.45% NACL 1000ML 1,000 ML IV ONE (13:45)
[2021-09-13] MEDS ORDERED: P20 PO (15:40)
[2021-09-13] MEDS ORDERED: LEVO500T89 MT (15:40)
[2021-09-13] MEDS ORDERED: FLUT1AER INH (15:40)
[2021-09-13] MEDS ORDERED: ALBU90AE INH (15:40)
[2021-09-13] MEDS: AZITHROMYCIN 500 MG in DEXT 5% WATER 250 ML IV SCH (17:18)
[2021-09-13] MEDS: CEFTRIAXONE 1,000 MG in DEXTROSE 5% WATER 50 ML IV SCH (17:18)
[2021-09-13] MEDS: FAMOTIDINE 20MG TABLET PO SCH (21:27)
[2021-09-14 04:00] VITALS: BP 147/78
[2021-09-14] MEDS: IPRATROPIUM/ALBUTEROL 0.5-3(2.5)MG/3ML NEB HHN SCH ×5 (04:27→20:57)
[2021-09-14] MEDS: METHYLPREDNISOLONE SOD SUCC 40 MG/ML VIAL IV SCH ×3 (05:37→21:17)
[2021-09-14 06:24] LABS: BASOPHILS % 0.2 % (0.0-2.0); HEMATOCRIT. 35.9 % (36.0-48.0); HEMOGLOBIN. 11.8 g/dL (12.0-16.0); MEAN CORPUSCULAR HEMOGLOBIN 26.6 pg (28.0-32.0); MEAN CORPUSCULAR VOLUME 81.1 fL (81.0-99.0); MEAN PLATELET VOLUME 8.9 fl (7.4-10.4); MONOCYTES % 2.5 % (2.0-8.0); NEUTROPHILS % 89.3 % (40.0-76.0); PLATELET 196 x1000/uL (130-400); RED BLOOD CELL COUNT 4.43 mill/uL (4.2-5.4); RED CELL DISTRIBUTION WIDTH 16.6 % (11.6-14.6)
[2021-09-14 06:39] LABS: CHLORIDE 110 mEq/L (98-107)
[2021-09-14 08:00] VITALS: BP 184/94
[2021-09-14] MEDS: METOPROLOL TARTRATE 25MG TABLET PO SCH (09:28)
[2021-09-14] MEDS: AMLODIPINE 5MG TABLET PO SCH (09:29)
[2021-09-14] MEDS: HYDROCORTISONE 1% OINT 28.35GM TOP SCH ×2 (09:29→21:17)
[2021-09-14 12:00] VITALS: BP 158/70
[2021-09-14] MEDS: AZITHROMYCIN 500 MG TABLET PO SCH (12:11)
[2021-09-14 16:00] VITALS: BP 166/82
[2021-09-14 18:00] VITALS: BP 162/76
[2021-09-14] MEDS: CEFTRIAXONE 1,000 MG in DEXTROSE 5% WATER 50 ML IV SCH (18:01)
[2021-09-14 20:00] VITALS: BP 153/84
[2021-09-14] MEDS: FAMOTIDINE 20MG TABLET PO SCH (21:17)
[2021-09-14] MEDS: HYDRALAZINE HCL 50MG TABLET PO SCH (21:17)
[2021-09-15 00:02] VITALS: BP 145/55
[2021-09-15] MEDS: IPRATROPIUM/ALBUTEROL 0.5-3(2.5)MG/3ML NEB HHN SCH ×7 (00:20→21:08)
[2021-09-15 04:00] VITALS: BP 151/72
[2021-09-15] MEDS: METHYLPREDNISOLONE SOD SUCC 40 MG/ML VIAL IV SCH ×3 (05:18→21:00)
[2021-09-15] MEDS: HYDRALAZINE HCL 50MG TABLET PO SCH ×3 (05:18→21:00)
[2021-09-15 07:01] LABS: BASOPHILS % 0.1 % (0.0-2.0); HEMATOCRIT. 37.5 % (36.0-48.0); HEMOGLOBIN. 12.5 g/dL (12.0-16.0); MEAN CORPUSCULAR HEMOGLOBIN 26.6 pg (28.0-32.0); MEAN CORPUSCULAR VOLUME 80.1 fL (81.0-99.0); MEAN PLATELET VOLUME 8.2 fl (7.4-10.4); NEUTROPHILS % 87.9 % (40.0-76.0); PLATELET 224 x1000/uL (130-400); RED BLOOD CELL COUNT 4.68 mill/uL (4.2-5.4); RED CELL DISTRIBUTION WIDTH 16.5 % (11.6-14.6)
[2021-09-15 07:02] LABS: CHLORIDE 114 mEq/L (98-107)
[2021-09-15 08:00] VITALS: BP 159/79
[2021-09-15] MEDS: HYDROCORTISONE 1% OINT 28.35GM TOP SCH ×2 (08:45→20:59)
[2021-09-15] MEDS: AMLODIPINE 5MG TABLET PO SCH (08:46)
[2021-09-15] MEDS: METOPROLOL TARTRATE 25MG TABLET PO SCH (08:46)
[2021-09-15] MEDS: DILTIAZEM HCL 60MG TABLET PO SCH ×3 (09:30→21:00)
[2021-09-15] MEDS: AZITHROMYCIN 500 MG TABLET PO SCH (10:33)
[2021-09-15 12:00] VITALS: BP 141/73
[2021-09-15 16:00] VITALS: BP 123/53
[2021-09-15] MEDS: CEFTRIAXONE 1,000 MG in DEXTROSE 5% WATER 50 ML IV SCH (17:17)
[2021-09-15 20:00] VITALS: BP 142/66
[2021-09-15] MEDS: FAMOTIDINE 20MG TABLET PO SCH (21:00)
[2021-09-16] VITALS: BP 140/62
[2021-09-16 04:00] VITALS: BP 124/55
[2021-09-16] MEDS: IPRATROPIUM/ALBUTEROL 0.5-3(2.5)MG/3ML NEB HHN SCH ×4 (04:50→15:38)
[2021-09-16 05:27] LABS: BASOPHILS % 0.1 % (0.0-2.0); HEMATOCRIT. 38.5 % (36.0-48.0); HEMOGLOBIN. 12.3 g/dL (12.0-16.0); LYMPHOCYTES % 7.3 % (20.0-50.0); MEAN CORPUSCULAR HEMOGLOBIN 26.1 pg (28.0-32.0); MEAN CORPUSCULAR VOLUME 81.5 fL (81.0-99.0); MEAN PLATELET VOLUME 8.6 fl (7.4-10.4); MONOCYTES % 3.4 % (2.0-8.0); NEUTROPHILS % 89.2 % (40.0-76.0); PLATELET 197 x1000/uL (130-400); RED BLOOD CELL COUNT 4.72 mill/uL (4.2-5.4)
[2021-09-16] MEDS: DILTIAZEM HCL 60MG TABLET PO SCH ×3 (05:54→22:25)
[2021-09-16] MEDS: METHYLPREDNISOLONE SOD SUCC 40 MG/ML VIAL IV SCH ×3 (05:54→22:25)
[2021-09-16] MEDS: HYDRALAZINE HCL 50MG TABLET PO SCH ×3 (05:54→22:40)
[2021-09-16 06:17] LABS: CHLORIDE 110 mEq/L (98-107)
[2021-09-16 08:00] VITALS: BP 126/54
[2021-09-16] MEDS: HYDROCORTISONE 1% OINT 28.35GM TOP SCH ×2 (08:59→22:25)
[2021-09-16] MEDS: METOPROLOL TARTRATE 25MG TABLET PO SCH (08:59)
[2021-09-16 12:00] VITALS: BP 148/69
[2021-09-16 16:00] VITALS: BP 127/59
[2021-09-16 20:00] VITALS: BP 182/82
[2021-09-16] MEDS: FAMOTIDINE 20MG TABLET PO SCH (22:25)
[2021-09-17] VITALS: BP 145/62
[2021-09-17] MEDS: IPRATROPIUM/ALBUTEROL 0.5-3(2.5)MG/3ML NEB HHN SCH ×2 (01:08→08:23)
[2021-09-17 04:00] VITALS: BP 142/64
[2021-09-17] MEDS: METHYLPREDNISOLONE SOD SUCC 40 MG/ML VIAL IV SCH (06:01)
[2021-09-17] MEDS: HYDRALAZINE HCL 50MG TABLET PO SCH (06:01)
[2021-09-17] MEDS: DILTIAZEM HCL 60MG TABLET PO SCH (06:02)
[2021-09-17 07:57] VITALS: BP 135/60
[2021-09-17 08:19] VITALS: BP 135/60
== END 2021-09-17 10:03 | disposition home or self-care (01) | DRG 189 ==
LOC: ER 13:46 → 6WST 23:34 → ENRESERV 09-12 02:10
PROVIDERS: ADMIT Internal Medicine; ATTEND Internal Medicine
DX: J96.01 Acute respiratory failure with hypoxia (principal); J44.1 Chronic obstructive pulmonary disease with (acute) exacerbation; J45.901 Unspecified asthma with (acute) exacerbation; N39.0 Urinary tract infection, site not specified; E87.2 Acidosis; E83.52 Hypercalcemia; E87.5 Hyperkalemia; R00.0 Tachycardia, unspecified; R19.7 Diarrhea, unspecified; E05.90 Thyrotoxicosis, unspecified without thyrotoxic crisis or storm; I10 Essential (primary) hypertension; R73.9 Hyperglycemia, unspecified; Z90.710 Acquired absence of both cervix and uterus; Z91.013 Allergy to seafood; Z79.899 Other long term (current) drug therapy
CPT/HCPCS: 36415; 36600; 71045; 76536; 80048; 80053; 80061; 81003; 82270; 82375; 82805; 83036; 83605; 83880; 84145; 84439; 84443; 84481; 84484; 85025; 87015; 87045; 87427; 87449; 89055; 93005; 93306; 93970; 94618; 94640; 99291; J0456; J0696; J1650; J2920; J7060; J7512

== ENCOUNTER 2022-09-30 14:05 | Emergency (ER) | payer MEDICARE, OTHER ==
[~2022-09-30] VITALS: Ht 170.2 cm; Wt 48.0 kg
[~2022-09-30 14:05] MED LIST changes: +FLUT1AER INH; +LEVO-65 MT; +P20 PO
[2022-09-30 15:52] LABS: BASOPHILS % 0.4 % (0.0-2.0); EOSINOPHILS % 4.2 % (0.0-5.0); HEMATOCRIT. 42.9 % (36.0-48.0); HEMOGLOBIN. 14.3 g/dL (12.0-16.0); MEAN CORPUSCULAR HEMOGLOBIN 26.6 pg (28.0-32.0); MEAN PLATELET VOLUME 8.2 fl (7.4-10.4); MONOCYTES % 10.1 % (2.0-8.0); NEUTROPHILS % 63.3 % (40.0-76.0); PLATELET 272 x1000/uL (130-400); RED BLOOD CELL COUNT 5.36 mill/uL (4.2-5.4); RED CELL DISTRIBUTION WIDTH 15.4 % (11.6-14.6)
[2022-09-30 16:00] LABS: CHLORIDE 111 mEq/L (98-107)
[2022-09-30 16:06] LABS: ETHANOL BLOOD < 10 mg/dL
[2022-09-30 16:16] LABS: CLARITY URINE CLOUDY (CLEAR); COLOR URINE YELLOW (YELLOW); KETONES URINE TRACE (NEGATIVE); LEUKOCYTE ESTERASE URINE 1+ (NEGATIVE); NITRITE URINE NEGATIVE (NEGATIVE); OCCULT BLOOD URINE 1+ (NEGATIVE); PROTEIN URINE TRACE (NEGATIVE); SPECIFIC GRAVITY URINE 1.021 (1.005-1.030); UROBILINOGEN URINE 0.2 E.U./dL (0.2-1.0)
[2022-09-30] MEDS ORDERED: DIPHENHYDRAMINE 50MG CAPSULE PO ONE (18:15)
[2022-09-30] MEDS ORDERED: P50 MT (18:19)
[2022-09-30] MEDS ORDERED: B50 MT (18:19)
[2022-09-30] MEDS ORDERED: CEPH500C2 MT (18:26)
[2022-09-30 18:27] VITALS: BP 138/86
== END 2022-09-30 18:29 | disposition home or self-care (01) ==
LOC: ER 14:05
DX: T78.1XXA Other adverse food reactions, not elsewhere classified, initial encounter (principal); N30.90 Cystitis, unspecified without hematuria; I10 Essential (primary) hypertension; J45.909 Unspecified asthma, uncomplicated; Z98.890 Other specified postprocedural states; X58.XXXA Exposure to other specified factors, initial encounter
CPT/HCPCS: 36415; 80053; 80320; 81003; 85025; 99283; Q0163; G0480

== ENCOUNTER 2023-05-14 22:53 | Emergency (ER) | payer BC, MEDICARE, OTHER ==
[~2023-05-14] VITALS: Ht 170.2 cm; Wt 56.0 kg
[~2023-05-14 22:53] MED LIST changes: +B50 MT; +CEPH500C2 MT; +P50 MT
[2023-05-14 23:01] VITALS: BP 138/87
[2023-05-15] MEDS ORDERED: IPRATROPIUM BROMIDE (0.02%) 0.5MG/2.5ML NEB HHN STA (00:21)
[2023-05-15] MEDS ORDERED: PREDNISONE 20MG TABLET PO STA (00:21)
[2023-05-15] MEDS ORDERED: ALBUTEROL (0.083%) 2.5MG/3ML NEB HHN STA (00:21)
[2023-05-15 00:43] LABS: BASOPHILS % 0.6 % (0.0-2.0); EOSINOPHILS % 4.8 % (0.0-5.0); HEMATOCRIT. 38.5 % (36.0-48.0); HEMOGLOBIN. 12.9 g/dL (12.0-16.0); MEAN CORPUSCULAR HEMOGLOBIN 26.2 pg (28.0-32.0); MEAN CORPUSCULAR VOLUME 78.5 fL (81.0-99.0); MEAN PLATELET VOLUME 7.8 fl (7.4-10.4); MONOCYTES % 9.8 % (2.0-8.0); NEUTROPHILS % 63.8 % (40.0-76.0); PLATELET 152 x1000/uL (130-400); RED BLOOD CELL COUNT 4.91 mill/uL (4.2-5.4); RED CELL DISTRIBUTION WIDTH 14.7 % (11.6-14.6)
[2023-05-15 00:55] LABS: CHLORIDE 108 mEq/L (98-107)
[2023-05-15] MEDS ORDERED: P20 MT (01:48)
== END 2023-05-15 02:02 | disposition home or self-care (01) ==
LOC: ER 22:53
DX: J45.901 Unspecified asthma with (acute) exacerbation (principal); I10 Essential (primary) hypertension; Z79.899 Other long term (current) drug therapy
CPT/HCPCS: 36415; 71045; 80053; 83880; 84484; 85025; 93005; 94644; 99285; J7512; Z7610

== ENCOUNTER 2025-01-08 04:14 | Emergency (ER) | payer BC, MEDICARE, OTHER ==
[~2025-01-08] VITALS: Ht 170.2 cm; Wt 62.7 kg
[~2025-01-08 04:14] MED LIST changes: +ALBU18HF2 IH; +AMLO10TA80 PO; +FLUT1DIS3 INH; +FLUT1DIS6 INH; +METH4TAB95 MT; -METOPROLOL PO; -NORVASC PO; +P20 MT
[2025-01-08 04:38] VITALS: TEMP 36.7
[2025-01-08] MEDS ORDERED: METHYLPREDNISOLONE 40MG/ML INJ IV ONE (04:45)
[2025-01-08] MEDS: IPRATROPIUM/ALBUTEROL 0.5-3(2.5)MG/3ML NEB HHN ONE (05:29)
[2025-01-08 05:30] VITALS: PULSE 75; RESP 20; O2SAT 98
[2025-01-08] MEDS: METHYLPREDNISOLONE SOD SUCC 125MG/2ML (ACT-O-VIAL) IV NR (05:33)
[2025-01-08 06:21] LABS: CHLORIDE 105 mEq/L (98-107); POTASSIUM 4.7 mEq/L (3.5-5.1); SODIUM 140 mEq/L (136-145)
[2025-01-08 06:22] LABS: CARBON DIOXIDE 28 mEq/L (21-32)
[2025-01-08 06:23] LABS: CALCIUM 10.9 mg/dL (8.7-10.4)
[2025-01-08 06:27] LABS: CREATININE 1.2 mg/dL (0.6-1.0); GLUCOSE 144 mg/dL (70-105); UREA NITROGEN BLOOD 19 mg/dL (9-23)
[2025-01-08 06:28] LABS: TROPONIN I HIGH SENSITIVITY 9 ng/L (3.0-34)
[2025-01-08 06:31] LABS: THYROID STIMULATING HORMONE 14.47 uIU/mL (0.55-4.78)
[2025-01-08 07:33] LABS: BASOPHILS % 0.9 % (0.0-2.0); EOSINOPHILS % 3.4 % (0.0-5.0); HEMATOCRIT. 47.1 % (36.0-48.0); HEMOGLOBIN. 15.6 g/dL (12.0-16.0); LYMPHOCYTES % 19.4 % (20.0-50.0); MEAN CORPUSCULAR HEMOGLOBIN 29.1 pg (28.0-32.0); MEAN CORPUSCULAR HGB CONC 33.1 g/dL (31.0-37.0); MEAN CORPUSCULAR VOLUME 87.9 fL (81.0-99.0); MEAN PLATELET VOLUME 9.6 fl (7.4-10.4); MONOCYTES % 5.9 % (2.0-8.0); NEUTROPHILS % 70.4 % (40.0-76.0); PLATELET 196 x1000/uL (130-400); RED BLOOD CELL COUNT 5.36 mill/uL (4.2-5.4); RED CELL DISTRIBUTION WIDTH 15.3 % (11.6-14.6)
[2025-01-08] MEDS ORDERED: P20 MT (07:53)
[2025-01-08 08:00] VITALS: BP 192/100; PULSE 69; RESP 18; O2SAT 100
[2025-01-08] MEDS ORDERED: AMLO10TA80 PO (11:11)
[2025-01-08] MEDS ORDERED: P50 MT (11:11)
[2025-01-08] MEDS ORDERED: ATROV IH (11:11)
[2025-01-08] MEDS ORDERED: FLUT1DIS3 INH (11:11)
== END 2025-01-08 09:30 | disposition home or self-care (01) ==
LOC: ER 04:29
DX: J44.1 Chronic obstructive pulmonary disease with (acute) exacerbation (principal); R94.6 Abnormal results of thyroid function studies; I10 Essential (primary) hypertension; Z79.51 Long term (current) use of inhaled steroids; Z79.52 Long term (current) use of systemic steroids; Z90.710 Acquired absence of both cervix and uterus; Z79.899 Other long term (current) drug therapy
CPT/HCPCS: 99285; 96374; 71045; 80048; 84443; 85025; 84484; 36415; 94640; 93005; J2919; J2920

== ENCOUNTER 2025-01-08 09:48 | Emergency (ER) | payer OTHER ==
[~2025-01-08] VITALS: Ht 162.6 cm; Wt 48.0 kg
[2025-01-08 09:55] VITALS: O2SAT 96
[2025-01-08 11:10] VITALS: BP 198/91; PULSE 66; RESP 18; TEMP 36.6; O2SAT 96
[2025-01-08] MEDS ORDERED: FLUT1DIS3 INH (11:11)
[2025-01-08] MEDS ORDERED: P50 MT (11:11)
[2025-01-08] MEDS ORDERED: ATROV IH (11:11)
[2025-01-08] MEDS ORDERED: AMLO10TA80 PO (11:11)
== END 2025-01-08 11:56 | disposition home or self-care (01) ==
LOC: ER 09:54
DX: I10 Essential (primary) hypertension (principal); Z76.0 Encounter for issue of repeat prescription; J44.89 Other specified chronic obstructive pulmonary disease; Z79.51 Long term (current) use of inhaled steroids; Z79.52 Long term (current) use of systemic steroids; Z90.710 Acquired absence of both cervix and uterus
CPT/HCPCS: 99283